=== PATIENT | male | born 1990 | race American Indian/Alaskan Native ===

== ENCOUNTER 2018-12-05 06:15 | Emergency (ER) | payer SELFPAY ==
[2018-12-05 06:32] VITALS: BP 126/89
--- NOTE | 2018-12-05 09:30 | Emergency Department Report ---
ED Rash HPI - HPI Chief Complaint: Skin Rash Stated Complaint: BODY RASH Duration: 1 week Location: Other (genitals) Suspected Cause: Other (STD) Rash Symptoms: No Itching, No Facial Swelling, No Tongue/Oral Swelling, No Breathing Difficulties, No Choking Sensation, No Wheezing/Dyspnea, No Peeling, No Blistering, No Fever, No Lightheaded, No Malaise, No Myalgias Other History: This is a 28-year-old male presents with the rash to her genitalia for 1 week. Patient states he noticed a rash last while taking a shower. He went to [facility] in [place] on Sunday who ran some tests for follow-up next Sunday. He was also diagnosed HIV. Patient states he has appointments next week with the same clinic to start treatment. Patient states rash has spread from one testicle 2 bilateral. He denies pain, penile discharge, testicular swelling or pain, frequency, urgency, or dysuria. ED Review of Systems ROS: Stated complaint: BODY RASH Other details as noted in HPI Constitutional: denies: chills, fever Respiratory: denies: cough, shortness of breath, wheezing Cardiovascular: denies: chest pain, palpitations Gastrointestinal: denies: abdominal pain, nausea, diarrhea Genitourinary: denies: urgency, dysuria, testicular pain, testicular mass Skin: rash (rash to genital). denies: lesions Neurological: denies: headache, weakness, paresthesias Psychiatric: denies: anxiety, depression ED Past Medical Hx - Past Medical History Previous Medical History?: No - Surgical History Past Surgical History?: No - Social History Smoking Status: Never Smoker Substance Use Type: None Rash Exam - Exam General: Vital signs noted. No distress. Alert and acting appropriately. HEENT: No Periorbital Edema, No Conjuctival Injection, No Chemosis, No Perioral Edema, No Tongue Edema, No Uvular Edema, No Compromised Airway, No Drooling Lungs: Yes Good Air Exchange (Normal Breath Sounds), No Wheezes, No Ronchi, No Stridor, No Cough, No Labored Respirations, No Retractions, No Use of Accessory Muscles, No Other Abnormal Lung Sounds Heart: Yes Regular, No Murmur Skin: Yes Other (multiple nickel and dime-sized pink round macular lesions to genital, nontender), No Urticarial Rash, No Maculopapular Rash, No Morbilliform rash, No Bulla(e), No Excoriations, No Weeping, No Tenderness, No Erythema, No Edema, No Encrustations ED Course Vital Signs 12/05/18 06:29 Temperature 97.8 F Pulse Rate 75 Respiratory 18 Rate Blood Pressure 126/89 O2 Sat by Pulse 98 Oximetry ED Medical Decision Making - Medical Decision Making This is a 28-year-old -[place] male who presents with penile irritation and discharge for 3 days. Patient was examined by me. Vitals are stable and in no acute distress. Rash to the genital susceptible of secondary syphilis. RPR reactive. Empirically treated with penicillin G. Instructed to follow-up with a AID clinic next week for continued doses at day 7 and 14. Discharged home in stable condition. Discussed prevention options. F/U with PCP or Health Department. Critical care attestation.: If time is entered above; I have spent that time in minutes in the direct care of this critically ill patient, excluding procedure time. ED Disposition Clinical Impression: STD exposure, Syphilis Disposition: - TO HOME OR SELFCARE Is pt being admited?: No Does the pt Need Aspirin: No Condition: Stable Instructions: Syphilis (ED), Safe Sex (ED) Additional Instructions: Follow-up with [facility] or AID clinic in 7 and 14 days for 2nd and 3rd dose of antibiotics. Referrals: VISH LIRA MD [Primary Care Provider] - 3-5 Days [facility] [Outside] - 3-5 Days Forms: Work/School Release Form(ED) Time of Disposition: 11:02
[2018-12-05] MEDS ORDERED: BICILLIN L-A IM ONE (10:58)
== END 2018-12-05 11:17 | disposition home or self-care (01) ==
LOC: ED 06:15
DX: A53.9 Syphilis, unspecified (principal); Z20.2 Contact with and (suspected) exposure to infections with a predominantly sexual mode of transmission
CPT/HCPCS: 36415; 86592; 86593; 86780; 96372; 99283; J0561